=== PATIENT | female | born 1990 | race Caucasian/White ===

== ENCOUNTER 2016-12-04 11:39 | Emergency (ER) | payer BC ==
[2016-12-04 11:45] VITALS: BP 143/95; BMI 44.9
[2016-12-04] MEDS ORDERED: TORADOL 60 MG VIAL IM ONE (11:58)
[2016-12-04] MEDS ORDERED: TORADOL 60 MG VIAL ONE (11:59)
--- NOTE | 2016-12-04 12:08 | DR.GENAD ---
HPI - PCP Primary Care Physician: LILLI - Complaint/Symptoms Chief Complaint:: PATIENT STATED THAT SHE IS CLUMMSY AND LAST NIGHT SHE WAS DANCING AND HER LEFT KNEE LOCKED OUT AND SHE FEEL. SHE STATED THAT SHE HAS VERY LIMITED MOVEMENT TODAY. - Source History Provided: Patient - Mode of Arrival Mode of Arrival: Ambulatory - Timing Onset of Chief Complaint: 12/02/16 PMH - PMH Past Medical History: No Past Surgical History: No - Family History History of Family Medical Conditions: Yes Family Medical History: Diabetes Mellitus Family Medical History Comment: THYROID - Social History Does patient currently use any type of tobacco product: Yes Have you used tobacco products in the last 12 months: Yes Type of Tobacco Use: Cigarettes Does any household member use tobacco: No Alcohol Use: Occasionally Do you use any recreational Drugs:: No Lives With: Family Lives Where: Home - infectious screening In the last 2 months have you had wt loss of >10#?: NO Have you had fever, night sweats or hemotysis?: No Have you traveled outside the country in the last 6 months?: No Isolation: Standard ROS - Review of Systems Eyes: No Symptoms Reported ENTM: No Symptoms Reported Respiratoy: No Symptoms Reported Cardiovascular: No Symptoms Reported Gastrointestinal/Abdominal: No Symptoms Reported Genitourinary: No Symptoms Reported Neurological: No Symptoms Reported Musculoskeletal: No Symptoms Reported Integumentary: No Symptoms Reported Hematologic/Lymphatic: No Symptoms Reported Endocrine: No Symptoms Reported Psychiatric: No Symptoms Reported All Other Systems: Reviewed and Negative PE - Vital Signs Vitals: Temperature 98.3 F Pulse Rate 96 Respiratory Rate 20 Blood Pressure 143/95 O2 Sat by Pulse Oximetry 98 - General General Appearance: Alert - Head Head Exam: Normal Inspection, Atraumatic - Eyes Eye exam: Normal Appearance, PERRL, EOMI - ENT ENT Exam: Normal Exam External Ear Exam: Normal External Inspection TM/Canal Exam: Bilateral Normal Nose Exam: Normal Nose Exam Mouth Exam: Normal Inspection Throat Exam: Normal Inspection - Neck Neck Exam: Normal Inspection - Chest Chest Inspection: Normal Inspection - Respiratory Respiratory Exam: Normal Lung Sounds Bilat Respiratory Exam: Bilateral Clear to Auscultation - Cardiovascular Cardiovascular Exam: Regular Rate - Abdominal Exam Abdominal Exam: Normal Inspection Abdominal Tenderness: negative: RUQ, RLQ, LUQ, LLQ, Epigastrium, Suprapubic, Diffuse, Mild, Moderate, Severe, Other - Extremities Extremities Exam: Tenderness, Joint Swelling (left knee pain) - Back Back Exam: Normal Inspection - Neurologic Neurological Exam: Alert, Oriented X3, CN II-XII Intact - Psychiatric Psychiatric Exam: Normal Affect - Skin Skin Exam: Warm, Dry ROR - XRAY XRAY Interpreted by: Radiologist (Knee: negative) - Diagnosis Discharge Problem: Left knee sprain Qualifiers: Encounter type: initial encounter Involved ligament of knee: unspecified ligament Qualified Code(s): S83.92XA - Sprain of unspecified site of left knee, initial encounter - Discharge Plan Condition: Stable - Follow ups/Referrals Follow ups/Referrals: JENIFER REEDER [Primary Care Provider] - 3 days - Instructions
--- NOTE | 2016-12-04 12:22 | RAD ---
HISTORY: Locking Study: Left knee AP and lateral Comparison: None Findings: No evidence for acute cortical disruption or dislocation. The medial and lateral tibiofemoral compar tments appear unremarkable without loss of significant joint space. The lateral radiograph fails to demonstrate significant joint effusion. Patellofemoral compartment is normal in its appearance. IMPRESSION: 1. Negative exam. Reported By:
== END 2016-12-04 12:57 | disposition home or self-care (01) ==
LOC: ER 11:50
DX: S83.92XA Sprain of unspecified site of left knee, initial encounter (principal); Y93.41 Activity, dancing; Y92.9 Unspecified place or not applicable
CPT/HCPCS: 73560; 96372; 99282; J1885